=== PATIENT | male | born 1955 | race Caucasian/White ===

== ENCOUNTER → 2021-10-27 12:21 | Outpatient (BNVA) | payer MEDICARE, OTHER, SELFPAY | PROVIDERS: PCP Nurse Practitioner Family; Visit Provider Family Medicine | DX: Z00.00 Encounter for general adult medical examination without abnormal findings (principal); R35.1 Nocturia | CPT/HCPCS: 80053; 80061; 84153 ==

== ENCOUNTER → 2022-04-12 15:26 | Outpatient (BNVA) | payer MEDICARE, OTHER, SELFPAY | PROVIDERS: PCP Family Medicine; Visit Provider Surgery | DX: K40.90 Unilateral inguinal hernia, without obstruction or gangrene, not specified as recurrent (principal) | CPT/HCPCS: 99203 ==

== ENCOUNTER 2022-05-09 08:16 | Day surgery (SDC) | payer MEDICARE, OTHER, SELFPAY ==
[2022-05-06 15:44] VITALS: BMI 24.2
[2022-05-09] VITALS (14 sets, daily range): BP systolic 113–151; BP diastolic 68–94; PULSE 67–88; RESP 16–20; TEMP 36.7–36.8; O2SAT 93–100
--- NOTE | 2022-05-09 09:13 | P.ANESASSM_ITS ---
Pre-Anesthetic Assessment Height/Weight: Height 1.68 m Weight 68.039 kg Temp Pulse Resp BP Pulse Ox O2 Del Method 98.1 F 85 18 130/90 100 05/09/22 09:01 05/09/22 09:01 05/09/22 09:01 05/09/22 09:01 05/09/22 09:01 05/09/22 09:01 Preop Diagnosis: left inguinal hernia Operation Date: 05/09/22 10:15 Proposed Procedures p Lap left inguinal hernia repair with mesh [id number],K40.90(Left) - Mando Mccormick DO Familial anesthetic complications: None Was Beta Gissell taken within 24 hours: N/A Was Clonidine taken within 24 hours: N/A Last intake: Intake Last Liquid Date 05/08/22 Last Liquid Time 19:00 Last Solid Date 05/08/22 Last Solid Time 16:00 Social No alcohol and No tobacco Exam alert, oriented x 3, clear to auscultation bilaterally and regular rate & rhythm Airway Mallampati: Class IV Dentition: caps and other (bridge) CV/HEM Hypertension (lisinopril prn (infrequent use)) Anesthetic Plan ASA status: 2 Anesthesia: General Risk of > 500 ml blood loss (7ml/kg in children): No Medications/Allergies Home Medications Medication Instructions Recorded Confirmed Last Taken Type lisinopril 10 mg tablet 10 mg PO DAILY PRN htn #20 tabs 03/22/22 05/06/22 05/06/22 Rx Allergies Allergy/AdvReac Type Severity Reaction Status Date / Time No Known Allergies Allergy Verified 05/06/22 15:42 [facility] Anesthesia Medical History Rhus dermatitis Spider bite Social History Smoking and tobacco status: never smoked Data Anesthesia Cardiac Studies: No Data to Display
--- NOTE | 2022-05-09 09:37 | W.PM.OPSUD ---
Surgery/Procedure H&P Update DATE OF PROCEDURE: May 09, 2022 DATE H&P PERFORMED: 04/12/22 PREOP DIAGNOSIS: left inguinal hernia PLANNED PROCEDURE: Operation Date: 05/09/22 10:15 Proposed Procedures p Lap left inguinal hernia repair with mesh [id number],K40.90(Left) - Mando Mccormick DO
[2022-05-09] MEDS: ceFAZolin 2,000 MG in sodium chloride 0.9% (plus) 50 ML 100 MG IV (10:13)
--- NOTE | 2022-05-09 12:32 | SUR.PHASEI ---
1225 PT TO PACU 4 PT AWAKES TO VOICE BUT QUICKLY BACK TO SLEEP WITH GOOD RESP EFFORT NOTED MONITOR SR WITH NO ECTOPY NOTED IV TO LT HAND #20 WITH 800ML NS UP AT KVO RATE. ID BRACLET TO RT WRIST, PT ID'D WITH 2 IDENTIFERS, GOOD RESP NOTED , ABDOMEN SOFT WITH 3 SITES WITH SKIN GLUE, AND BILAT SCDS ON AND WORKING.
[2022-05-09] MEDS: fentaNYL 50 mcg/mL INJ 2mL IVP ×2 (12:41→12:49)
--- NOTE | 2022-05-09 12:56 | SUR.PHASEI ---
1255 PT MORE ALERT ,PT REQUEST TO SIT UP AT 45 DEGREES, KNEES ELEVATED FOR COMFORT, PT C/O OF PAIN OF 8 UNCHANGED, SEE PAIN MED REPEATED, RESP EVEN AND UNLABORED, MONITOR UNCHANGED ABDOMEN SOFT WITH 3 SITES UNCHANGED.
--- NOTE | 2022-05-09 13:14 | PM.OP ---
Operative Report Date of procedure: May 09, 2022 Pre-op diagnosis: Preop Diagnosis left inguinal hernia Post-op diagnosis: other (Indirect left inguinal hernia containing bowel) Procedure done: Laparoscopic repair (TEPP) of left inguinal hernia with mesh Implants: Extra-large left 3D max Bard mesh Specimens removed/disposition: None Surgeon: Dr. Mando Mccormick DO Anesthesia: General Estimated blood loss (mL): 10 Complications: None apparent Brief History: This is a very pleasant 67-year-old gentleman with a left inguinal hernia. Laparoscopic repair with mesh was indicated. The risks and benefits were explained and documented. Procedure: Patient was wheeled into the operative room and placed on the OR table in a supine position. Abdomen was inspected prepped and draped in usual sterile fashion. Time-out was performed and all present were in agreement. A 15 blade scalpel was used to make 1.2 centimeter incision infraumbilically. Combination of sharp and blunt dissection was performed down to the anterior rectus sheath which was opened sharply. The dissecting balloon was then inserted into the space of Retzius and blown up. We put the camera into the port and identified that we were in the correct space. I then placed 2 5 millimeter trocars suprapubically in the midline. I then used endokitners to bluntly dissect in the space of Retzius out laterally. A large indirect left inguinal hernia containing bowel was identified Blunt dissection was performed to dissect down the hernia sac until the vas deferens dove medially. Significant meticulous dissection was required to carefully remove the hernia sac from the spermatic cord. Care was taken not to injure underlying bowel. A couple small holes in the peritoneum were closed with clipappliers. An extra-large left inguinal mesh was then placed into the space of Retzius. The mesh was unrolled and tacked once medially at the pubic bone. The mesh laid out nicely over the spermatic cord. Photos were taken of the mesh laid out and the hernia sac laid underneath the mesh. I watched the hernia sac remain in place as insufflation was removed. Incisions were closed with 4 O Monocryl in a subcuticular interrupted fashion. Skin glue was applied. Patient tolerated the procedure well.
--- NOTE | 2022-05-09 13:20 | SUR.PHASEI ---
PT TO OPS BAY 1 HANDOFF TO ALEXANDRA PATINO AT BEDSIDE, PT AWAKE ALERT TAKING SIPS OF COLA ABDOMEN UNCHANGED.
[2022-05-09] MEDS: HYDROcodone-acetaminophen 7.5-325 mg Tablet 1 TAB PO (14:16)
--- NOTE | 2022-05-09 14:36 | SUR.PHASEII ---
patient given scrotal support and ice pack, instructed to use support and ice for comfort.
--- NOTE | 2022-05-09 16:25 | ANE.PACU2 ---
Inpatient post-anesthesia follow up: Airway intact: Yes Vital signs: Temperature 98.0 F Pulse Rate 78 Respiratory Rate 18 Blood Pressure 120/76 Pulse Oximetry 97 Oxygen Delivery Me thod Room Air Oxygen Flow Rate 8 Fraction of Inspir ed Oxygen Hydration adequate: Yes Nausea and vomiting: No Pain level: 1 Mental status: Baseline
== END 2022-05-09 14:25 | disposition home or self-care (01) ==
PROVIDERS: PCP Family Medicine; Visit Provider Surgery
PROC: (CPT 49650; principal; 2022-05-09 10:05)
DX: K40.90 Unilateral inguinal hernia, without obstruction or gangrene, not specified as recurrent (principal); I10 Essential (primary) hypertension
CPT/HCPCS: 49650; 51702; J0690; J1100; J2250; J2405; J2704; J2795; J3010; J3490

== ENCOUNTER → 2022-05-24 10:40 | Outpatient (BNVA) | payer MEDICARE, OTHER, SELFPAY | PROVIDERS: PCP Family Medicine; Visit Provider Surgery | DX: Z48.89 Encounter for other specified surgical aftercare (principal) | CPT/HCPCS: 99024 ==

== ENCOUNTER → 2022-08-03 13:26 | Outpatient (BNVA) | payer MEDICARE, OTHER, SELFPAY | PROVIDERS: PCP Family Medicine; Visit Provider Surgery | DX: Z98.890 Other specified postprocedural states (principal); Z87.19 Personal history of other diseases of the digestive system | CPT/HCPCS: 99024 ==

== ENCOUNTER → 2022-10-04 10:51 | Outpatient (BNVA) | payer MEDICARE, OTHER, SELFPAY | PROVIDERS: PCP Family Medicine; Visit Provider Family Medicine | DX: Z00.00 Encounter for general adult medical examination without abnormal findings (principal); I10 Essential (primary) hypertension | CPT/HCPCS: 80053; 80061 ==

== ENCOUNTER → 2023-01-16 09:17 | Outpatient (BNVA) | payer MEDICARE, OTHER, SELFPAY | PROVIDERS: PCP Nurse Practitioner; Visit Provider Nurse Practitioner | DX: T14.8XXA Other injury of unspecified body region, initial encounter (principal); W57.XXXA Bitten or stung by nonvenomous insect and other nonvenomous arthropods, initial encounter | CPT/HCPCS: 80076; 86000; 86618; 86666; 86757 ==

== ENCOUNTER → 2023-04-05 08:58 | Outpatient (BNVA) | payer MEDICARE, OTHER, SELFPAY | PROVIDERS: PCP Nurse Practitioner; Visit Provider Nurse Practitioner Family | DX: I10 Essential (primary) hypertension (principal); Z79.899 Other long term (current) drug therapy; E55.9 Vitamin D deficiency, unspecified; Z12.5 Encounter for screening for malignant neoplasm of prostate | CPT/HCPCS: 80053; 80061; 81003; 82306; 83036; 84443; 85025; G0103 ==

== ENCOUNTER → 2023-08-29 13:45 | Outpatient (BNVA) | payer MEDICARE, OTHER, SELFPAY | PROVIDERS: PCP Nurse Practitioner; Visit Provider Nurse Practitioner Family | DX: D48.5 Neoplasm of uncertain behavior of skin (principal); L82.1 Other seborrheic keratosis; L81.4 Other melanin hyperpigmentation; D22.5 Melanocytic nevi of trunk; L85.3 Xerosis cutis; L57.8 Other skin changes due to chronic exposure to nonionizing radiation; Z85.828 Personal history of other malignant neoplasm of skin | CPT/HCPCS: 11102; 99213 ==

== ENCOUNTER → 2023-10-11 10:42 | Outpatient (BNVA) | payer MEDICARE, OTHER, SELFPAY | PROVIDERS: PCP Nurse Practitioner; Visit Provider Dermatology | DX: C44.519 Basal cell carcinoma of skin of other part of trunk (principal); C44.612 Basal cell carcinoma of skin of right upper limb, including shoulder | CPT/HCPCS: 17262 ==

== ENCOUNTER → 2024-04-15 13:05 | Outpatient (BNVA) | payer MEDICARE, OTHER, SELFPAY | PROVIDERS: PCP Nurse Practitioner; Visit Provider Nurse Practitioner Family | DX: L72.0 Epidermal cyst (principal); L57.8 Other skin changes due to chronic exposure to nonionizing radiation; L81.4 Other melanin hyperpigmentation; D22.5 Melanocytic nevi of trunk; Z08 Encounter for follow-up examination after completed treatment for malignant neoplasm; Z85.828 Personal history of other malignant neoplasm of skin; L57.0 Actinic keratosis | CPT/HCPCS: 17000; 99213 ==

== ENCOUNTER → 2024-04-29 11:08 | Outpatient (BNVA) | payer MEDICARE, OTHER, SELFPAY | PROVIDERS: PCP Nurse Practitioner Family; Visit Provider Nurse Practitioner Family | DX: E55.9 Vitamin D deficiency, unspecified (principal); Z79.899 Other long term (current) drug therapy; Z00.00 Encounter for general adult medical examination without abnormal findings; I10 Essential (primary) hypertension; Z12.5 Encounter for screening for malignant neoplasm of prostate; H61.23 Impacted cerumen, bilateral | CPT/HCPCS: 80053; 80061; 81003; 82306; 83036; 84443; 85025; G0103 ==

== ENCOUNTER → 2024-05-14 12:57 | Outpatient (BNVA) | payer MEDICARE, OTHER, SELFPAY | PROVIDERS: PCP Nurse Practitioner Family; Visit Provider Surgery | DX: K40.90 Unilateral inguinal hernia, without obstruction or gangrene, not specified as recurrent (principal); R04.0 Epistaxis | CPT/HCPCS: 99214 ==

== ENCOUNTER 2024-05-23 07:10 | Day surgery (SDC) | payer MEDICARE, OTHER, SELFPAY ==
[2024-05-23] VITALS (18 sets, daily range): BP systolic 120–146; BP diastolic 69–91; PULSE 83–96; RESP 12–24; TEMP 36.3–36.7; O2SAT 98–100; BMI 23.6
[2024-05-23] MEDS: sodium chloride 0.9% 1,000 ML 30 ML IV (07:45)
--- NOTE | 2024-05-23 07:52 | P.ANESASSM_ITS ---
Pre-Anesthetic Assessment Height/Weight: Height 1.68 m Weight 66.224 kg Temp Pulse Resp BP Pulse Ox O2 Del Method 98.1 F 83 16 129/72 98 Room Air 05/23/24 07:24 05/23/24 07:24 05/23/24 07:24 05/23/24 07:24 05/23/24 07:24 05/23/24 07:24 Operation Date: 05/23/24 08:50 Proposed Procedures p Laparoscopic Inguinal Hernia Repair with mesh 40590, K40.90(Right) - Mando Mccormick DO Familial anesthetic complications: None Was Beta Gissell taken within 24 hours: N/A Was Clonidine taken within 24 hours: N/A Last intake: Intake Last Liquid Date 05/22/24 Last Liquid Time 19:30 Last Solid Date 05/22/24 Last Solid Time 16:00 Social No alcohol and No tobacco Exam alert, oriented x 3, clear to auscultation bilaterally and regular rate & rhythm Airway Mallampati: Class III Dentition: full (has had extensive dental work done to restore his teeth) CV/HEM Hypertension Anesthetic Plan ASA status: 2 Anesthesia: General Risk of > 500 ml blood loss (7ml/kg in children): No Medications/Allergies Home Medications ?Medication ?Instructions ?Recorded ?Confirmed ?Last Taken ?Type lisinopril 20 1 tab PO DAILY 90 days #90 t abs 02/07/24 05/22/24 05/22/24 Rx mg-hydrochlorothiazide 25 mg tablet Allergies Allergy/AdvReac Type Severity Reaction Status Date / Time No Known Allergies Allergy Verified 05/23/24 07:22 Current Medications Generic Name Dose Route Start Last Admin Trade Name Lito PRN Reason Stop Dose Admin Sodium Chloride 1,000 mls @ 30 mls/hr 05/23/24 07:30 05/23/24 07:45 Sodium Chloride 0.9% IV 05/24/24 07:29 30 mls/hr .Q24H ABIODUN Administration PFSH Anesthesia Medical History Difficult bowel movements Colon polyps Right inguinal hernia Bilateral impacted cerumen Medication management Rhus dermatitis Hypertension Spider bite Surgical History History of left inguinal hernia repair Social History Smoking and tobacco/nicotine status: never used tobacco/nicotine Data Anesthesia Cardiac Studies: No Data to Display
--- NOTE | 2024-05-23 08:48 | W.PM.OPSUD ---
Surgery/Procedure H&P Update DATE OF PROCEDURE: May 23, 2024 DATE H&P PERFORMED: 05/14/24 H&P UPDATE INFORMATION: I have reviewed H&P completed within last 30 days, I have examined patient prior to procedure and No changes to prior documentation PLANNED PROCEDURE: Operation Date: 05/23/24 08:50 Proposed Procedures p Laparoscopic Inguinal Hernia Repair with mesh [id number], K40.90(Right) - Mando Mccormick DO
[2024-05-23] MEDS: ceFAZolin 2,000 mg SDV 2000 MG IVP (09:34)
[2024-05-23] MEDS: tranexamic acid 1,000 mg/10mL SDV 1000 MG IV ×2 (10:08→11:24)
[2024-05-23] MEDS: lidocaine-epi 2% PF 1:200,000 20 mL SDV XX (10:10)
--- NOTE | 2024-05-23 11:46 | PM.OP ---
Operative Report Date of procedure: May 23, 2024 Surgeon: Mando Mccormick DO Procedure: Pre-op diagnosis: Right inguinal hernia Post-op diagnosis: Indirect right inguinal hernia Procedure done: Laparoscopic (TEPP) repair of right inguinal hernia with mesh Implants: Right extra-large 3D max Bard mesh is Specimens removed/disposition: None Surgeon: Mando Mccormick DO Anesthesia: General and Local Estimated blood loss (mL): 20 Complications: None apparent Brief History: This is a very pleasant 69-year-old gentleman who presented my office with a right inguinal hernia. Laparoscopic repair with mesh was indicated. The risk and benefits were explained and documented. Procedure: Patient was wheeled into the operative room and placed on the OR table in a supine position. Abdomen was inspected prepped and draped in usual sterile fashion. Time-out was performed and all present were in agreement. A 15 blade scalpel was used to make 1.2 centimeter incision infraumbilically. Combination of sharp and blunt dissection was performed down to the anterior rectus sheath which was opened sharply. The dissecting balloon was then inserted into the space of Retzius and blown up. We put the camera into the port and identified that we were in the correct space. I then placed 2 5 millimeter trocars suprapubically in the midline. I then used endokitners to bluntly dissect in the space of Retzius out laterally. An indirect inguinal hernia was identified on the right. Blunt dissection was performed to dissect down the hernia sac until the vas deferens dove medially. An extra-large 3D max Bard right inguinal mesh was then placed into the space of Retzius. The mesh was unrolled and tacked once medially at the pubic bone. The mesh laid out nicely over the spermatic cord. Hernia sac was held underneath the meshes as the insufflation was released. There was a small hole in the peritoneum near the umbilical incision that I closed with an 0 Vicryl in a [id number] fashion. Incisions were closed with 4 O Vicryl in a subcuticular interrupted fashion. Skin glue was applied. Patient tolerated the procedure well.
[2024-05-23] MEDS: fentaNYL 50 mcg/mL INJ 2mL IVP ×2 (11:59→12:06)
[2024-05-23] MEDS: HYDROmorphone 1 mg/mL INJ 1 mL 0.5 MG IVP (12:30)
--- NOTE | 2024-05-23 12:51 | PC.NURSE ---
1225- Patient continues to c/o pain of 7/10 to abdomen. Refuses morphine at this time. Spoke with Dr. Alberts - orders received for 0.25 mg dilaudid IV.
[2024-05-23] MEDS: HYDROcodone-acetaminophen 7.5-325 mg Tablet 1 TAB PO (13:06)
--- NOTE | 2024-05-23 14:25 | ANE.PACU2 ---
Inpatient post-anesthesia follow up: Airway intact: Yes Vital signs: Temperature 97.8 F Pulse Rate 92 Respiratory Rate 16 Blood Pressure 125/89 Pulse Oximetry 99 Oxygen Delivery Me thod Room Air Oxygen Flow Rate 8 Fraction of Inspir ed Oxygen Hydration adequate: Yes Nausea and vomiting: No Pain level: 1 Mental status: Baseline
== END 2024-05-23 14:28 | disposition home or self-care (01) ==
PROVIDERS: Visit Provider Surgery
PROC: (CPT 49650; principal; 2024-05-23 08:40)
DX: K40.90 Unilateral inguinal hernia, without obstruction or gangrene, not specified as recurrent (principal); I10 Essential (primary) hypertension; R04.0 Epistaxis; Z79.899 Other long term (current) drug therapy
CPT/HCPCS: 49650; 51702; C1781; J0690; J1100; J1171; J2405; J2704; J2710; J3010; J3490; J7030

== ENCOUNTER → 2024-06-03 08:54 | Outpatient (BNVA) | payer MEDICARE, OTHER, SELFPAY | PROVIDERS: Visit Provider Surgery | DX: Z98.890 Other specified postprocedural states (principal); Z87.19 Personal history of other diseases of the digestive system | CPT/HCPCS: 99024 ==

== ENCOUNTER → 2024-06-13 10:22 | Outpatient (BNVA) | payer MEDICARE, OTHER, SELFPAY | PROVIDERS: PCP Nurse Practitioner Family; Referring Provider Nurse Practitioner Family; Visit Provider Surgery | DX: Z12.11 Encounter for screening for malignant neoplasm of colon (principal); Z86.0100 Personal history of colon polyps, unspecified | CPT/HCPCS: 81003; 99214 ==

== ENCOUNTER → 2024-07-05 10:43 | Outpatient (BNVA) | payer MEDICARE, OTHER, SELFPAY | PROVIDERS: PCP Nurse Practitioner Family; Referring Provider Nurse Practitioner Family; Visit Provider Student in an Organized Health Care Education/Training Program | DX: Z12.11 Encounter for screening for malignant neoplasm of colon (principal) | CPT/HCPCS: 99214 ==

== ENCOUNTER 2024-07-16 10:10 | Day surgery (SDC) | payer MEDICARE, OTHER, SELFPAY ==
[2024-07-16 10:27] VITALS: BP 147/92; PULSE 89; RESP 16; TEMP 37.1; O2SAT 98; BMI 22.7
[2024-07-16] MEDS: sodium chloride 0.9% 1,000 ML 30 ML IV (10:37)
--- NOTE | 2024-07-16 10:48 | W.PM.OPSUD ---
Surgery/Procedure H&P Update DATE OF PROCEDURE: July 16, 2024 DATE H&P PERFORMED: 07/05/24 H&P UPDATE INFORMATION: I have reviewed H&P completed within last 30 days, I have examined patient prior to procedure and No changes to prior documentation PLANNED PROCEDURE: Operation Date: 07/16/24 11:30 Proposed Procedures p Colonoscopy 30087 G0121 Z12.11(Not Applicable) - Kirt Burris MD
--- NOTE | 2024-07-16 10:50 | P.ANESASSM_ITS ---
Pre-Anesthetic Assessment Height/Weight: Height 1.7 m Weight 65.771 kg Temp Pulse Resp BP Pulse Ox O2 Del Method 98.7 F 89 16 147/92 98 Room Air 07/16/24 10:27 07/16/24 10:27 07/16/24 10:27 07/16/24 10:27 07/16/24 10:27 07/16/24 10:27 Preop Diagnosis: screening Operation Date: 07/16/24 11:30 Proposed Procedures p Colonoscopy [id number] G0121 Z12.11(Not Applicable) - Kirt Burris MD Was Beta Gissell taken within 24 hours: N/A Was Clonidine taken within 24 hours: N/A Last intake: Intake Last Liquid Date 07/15/24 Last Liquid Time 21:00 Last Solid Date 07/14/24 Last Solid Time 14:00 Social Alcohol (a few beers weekly) and No tobacco Exam alert and oriented x 3 Airway Submandibular: within normal limits Cervical ROM: within normal limits Mallampati: Class II Dentition: full History/ROS No significant history except as noted Pulmonary None reported CV/HEM Hypertension does take medications for BP regularly Hepatic None reported GI None reported Metabolic None reported Musc/skel None reported Neuropsych None reported Anesthetic Plan ASA status: 2 Anesthesia: MAC Risk of > 500 ml blood loss (7ml/kg in children): No Medications/Allergies Home Medications ?Medication ?Instructions ?Recorded ?Confirmed ?Last Taken ?Type lisinopril 20 1 tab PO DAILY 90 days #90 t abs 02/07/24 07/16/24 07/15/24 Rx mg-hydrochlorothiazide 25 mg tablet docusate sodium 100 mg capsule 100 mg PO BID #30 caps 05/23/24 07/16/24 07/15/24 Rx (Colace) Allergies Allergy/AdvReac Type Severity Reaction Status Date / Time No Known Allergies Allergy Verified 07/16/24 10:24 Current Medications Generic Name Dose Route Start Last Admin Trade Name Freq PRN Reason Stop Dose Admin Sodium Chloride 1,000 mls @ 30 mls/hr 07/16/24 10:30 07/16/24 10:37 Sodium Chloride 0.9% IV 30 mls/hr .Q24H ABIODUN Administration PFSH Anesthesia Medical History Difficult bowel movements Colon polyps Right inguinal hernia Bilateral impacted cerumen Medication management Rhus dermatitis Hypertension Spider bite Surgical History Hx of right inguinal hernia repair History of left inguinal hernia repair Social History Smoking and tobacco/nicotine status: never used tobacco/nicotine Data Anesthesia Cardiac Studies: No Data to Display
[2024-07-16 11:17] VITALS: BP 119/75; PULSE 76; RESP 18; TEMP 36.2; O2SAT 98
[2024-07-16 11:28] VITALS: BP 112/75; PULSE 86; RESP 18; TEMP 36.2; O2SAT 99
--- NOTE | 2024-07-16 12:05 | ANE.PACU2 ---
Inpatient post-anesthesia follow up: Airway intact: Yes Vital signs: Temperature 97.2 F Pulse Rate 86 Respiratory Rate 18 Blood Pressure 112/75 Pulse Oximetry 99 Oxygen Delivery Me thod Room Air Oxygen Flow Rate Fraction of Inspir ed Oxygen Hydration adequate: Yes Nausea and vomiting: No Pain level: 1 Mental status: Baseline
== END 2024-07-16 12:04 | disposition home or self-care (01) ==
PROVIDERS: PCP Nurse Practitioner Family; Visit Provider Student in an Organized Health Care Education/Training Program
PROC: 0DJD8ZZ Inspection of Lower Intestinal Tract, Via Natural or Artificial Opening Endoscopic (ICD-10-PCS; CPT 45378; principal; 2024-07-16 11:30)
DX: Z12.11 Encounter for screening for malignant neoplasm of colon (principal); K57.30 Diverticulosis of large intestine without perforation or abscess without bleeding; I10 Essential (primary) hypertension; Z79.899 Other long term (current) drug therapy; Z86.0100 Personal history of colon polyps, unspecified
CPT/HCPCS: 45378; G0121; J7030

== ENCOUNTER → 2025-04-14 14:05 | Outpatient (BNVA) | payer MEDICARE, OTHER, SELFPAY | PROVIDERS: PCP Nurse Practitioner Family; Visit Provider Nurse Practitioner Family | DX: L57.8 Other skin changes due to chronic exposure to nonionizing radiation (principal); Z85.828 Personal history of other malignant neoplasm of skin; L72.0 Epidermal cyst; D48.5 Neoplasm of uncertain behavior of skin | CPT/HCPCS: 10060; 11102; 99213 ==